=== PATIENT | female | born 1940 | race Caucasian/White ===

== ENCOUNTER 2016-07-08 14:05 | Emergency (ER) | payer BC ==
[~2016-07-08 14:05] MED LIST: ARAVA10 PO; ATV.5 PO; ATV1 PO; BL FLAX SEED1000 MG OR; CARDCD120 PO; CARTIA XT120 MG/24 PO; CORDARONE PO; CRANBERRY1 TAB OR; CRANBERRY500 MG PO; ELIQUIS 5 MG TAB5 MG PO; FOLIC PO; IRON325 MG PO; K-TABS10 MEQ PO; LEVOTHYROXIN100 MCG PO; LEVOTHYROXIN125 MCG PO; LIPOTRIAD1 CAP PO; MAGOX4 PO; NATTOKINASE; NORCO1 TA1 PO; NORCO1 TA2 PO; ORAZINC110 MG PO; OS500+D PO; P5 PO; POTASSIUM PO; PREM.3B PO; PRILOSEC40 MG PO; RYTHMOL150 MG PO; THERACURMIN; [UNRECOGNIZED DRUG - OTHER]; [UNRECOGNIZED DRUG - OTHER]
[2016-08-26] MEDS ORDERED: BEN25 PO (12:15)
[2016-08-26] MEDS ORDERED: EDECRIN 25 MG T25 MG PO (12:16)
[2016-08-26] MEDS ORDERED: PRILO PO (12:17)
== END 2016-07-08 14:25 | disposition home or self-care (01) ==
LOC: ER 14:05
DX: R07.81 Pleurodynia (principal); K21.9 Gastro-esophageal reflux disease without esophagitis; F41.9 Anxiety disorder, unspecified; D64.9 Anemia, unspecified; Z95.0 Presence of cardiac pacemaker; Z90.710 Acquired absence of both cervix and uterus; Z88.2 Allergy status to sulfonamides; Z88.8 Allergy status to other drugs, medicaments and biological substances; Z79.52 Long term (current) use of systemic steroids; Z79.899 Other long term (current) drug therapy; W01.0XXA Fall on same level from slipping, tripping and stumbling without subsequent striking against object, initial encounter
CPT/HCPCS: 71101; 72100; 99285; A9270-GY